=== PATIENT | female | born 1995 | race Caucasian/White ===

== ENCOUNTER 2019-05-21 18:10 | Emergency (ER) | payer OTHER ==
[2019-05-21 18:32] VITALS: BMI 30.9
--- NOTE | 2019-05-21 19:26 | PDOC ---
History of Present Illness - General Chief Complaint: Syncope/Near Syncope Stated Complaint: Syncope/Near Syncope Time Seen by Provider: 05/21/19 19:25 History Source: Patient Exam Limitations: No Limitations - History of Present Illness Initial Comments: Ruba Liu is a 23 yo obese female who denies having any pmh who presents to the [facility] after she experienced a syncopal episode earlier today at the nail salon. She was sitting down, doing someone else's nails, when all of a sudden she felt dizzy, lightheaded, nauseous, and weak then passed out for around 30 seconds on a chair and did not experience any trauma. This episode was witnessed and confirmed by multiple other people in the nail salon. She woke up 30 seconds later, was not confused, and returned to baseline immediately without any post-ictal phase. She did not lose control of her bowel or bladder and did not experience any tongue biting. Bystanders stated she did not appear to have a seizure. Here in the ER the patient denies any symptoms other than mild nausea. She endorses mild nausea but no emesis. She also says it is possible she is . Denies any chest pain, SOB, difficulty breathing before the syncopal episode. Denies headache, blurry vision, numbness, tingling, chills. PCP: Bj Mcgraw PSH: None reported Allergies: NKA, NKDA Social Hx: Denies using any illicit drugs. Denies alcohol, cigarettes, or other substance abuse Past History - Past Medical History Allergies/Adverse Reactions: Allergies Allergy/AdvReac Type Severity Reaction Status Date / Time No Known Allergies Allergy Verified 05/21/19 18:32 Home Medications: Ambulatory Orders Vit 14/Iron Fum/Folic [Completenate Tablet Chew] 1 each PO 1XPACU 7 Days #1 tab.chew 05/21/19 COPD: No - Immunization History Immunization Up to Date: Yes - Psycho Social/Smoking Cessation Hx Smoking History: Never smoked Have you smoked in the past 12 months: No Information on smoking cessation initiated: No Hx Alcohol Use: No Drug/Substance Use Hx: No Substance Use Type: None Review of Systems - Review of Systems Able to Perform ROS?: Yes Comments:: CONSTITUTIONAL: Absent: fever, no chills, no fatigue EYES: Absent: visual changes ENT: Absent: ear pain, no sore throat CARDIOVASCULAR: Present: Syncope Absent: chest pain, no palpitations RESPIRATORY: Absent: cough, no SOB GI: Present: Nausea Absent: abdominal pain, no vomiting, no constipation, no diarrhea GENITOURINARY: Absent: dysuria, no frequency, no hematuria MUSKULOSKELETAL: Absent: back pain, no arthralgia, no myalgia SKIN: Absent: rash NEURO: Absent: headache *Physical Exam - Vital Signs Last Vital Signs Temp Pulse Resp BP Pulse Ox 98.3 F 100 H 18 129/84 98 05/21/19 18:10 05/21/19 18:58 05/21/19 18:58 05/21/19 18:58 05/21/19 18:58 - Physical Exam GENERAL: Well-appearing, well-nourished. No apparent distress. HEENT: Normocephalic, atraumatic. PERRL, EOM intact. CARDIOVASCULAR: Tachycardic rarte. Normal S1, S2. Regular rhythm. PULMONARY: No evidence of respiratory distress. Lungs clear to auscultation bilaterally. No wheezing, rales or rhonchi. ABDOMEN: Soft, non-distended, non-tender. EXTREMITIES: Normal ROM in all four extremities. No gross deformities. SKIN: Warm, dry. No rash NEUROLOGICAL: No focal neurological deficits. Heart Score/ECG Review - ECG Intrepretation Rhythm: Regular Rhythm - Dalton Dalton: Normal - P and NV Atrial Enlargement: Left Prominent R with upright T in V1 (true posterior NJ): No Delta Wave(s) Present: No WPW: No - QRS Poor R Wave Progression: No Q Wave Present: No - ECG Impressions Normal ECG: No Non-specific ST Elevation: No Ischemic Changes: No Torsades ebtsy Pointes: No WPW: No Comment:: NS rate 100, QTc 448, no evidence of WPW, brugada or wellens. No evidence of ARVD. ED Treatment Course - LABORATORY CBC & Chemistry Diagram: 05/21/19 20:00 05/21/19 20:00 Medical Decision Making - Medical Decision Making Ruba Liu is a 23 yo obese female who denies having any pmh who presents to the [facility] after she experienced a syncopal episode earlier today at the nail salon. She was sitting down, doing someone else's nails, when all of a sudden she felt dizzy, lightheaded, nauseous, and weak then passed out for around 30 seconds on a chair and did not experience any trauma. This episode was witnessed and confirmed by multiple other people in the nail salon. She woke up 30 seconds later, was not confused, and returned to baseline immediately without any post-ictal phase. She did not lose control of her bowel or bladder and did not experience any tongue biting. Bystanders stated she did not appear to have a seizure. Here in the ER the patient denies any symptoms other than mild nausea. She endorses mild nausea but no emesis. She also says it is possible she is . Vital Signs Temp Pulse Resp BP Pulse Ox 98 F 93 H 18 128/76 98 05/21/19 20:26 05/21/19 20:26 05/21/19 20:26 05/21/19 20:26 05/21/19 20:26 - Tachycardia DDx IBNLT: Arryhtmia, dehydration, vaso-vagal syncope, - IUP vs ec topic, anemia, electrolyte/metabolic disturbance, ACS, less likely seizure Plan:EKG, labs, urine, IV hydration, supportive care, re-assess. EKG: Documented in EKG section. No concern for arrythmia labs: Unremarkable Urine: HCG positive - Will obtain quantitative Beta - T&S - TVUS to see if in uterus vs ectopic Re-assessment: TVUS shows thickened endometrial stripe but no IUP rH positive Disposition: Home with OB fu, pre- vitamins, strict return precautions. Discharge - Discharge Information Problems reviewed: Yes Clinical Impression/Diagnosis: Qualifiers: Weeks of gestation: unspecified Qualified Code(s): Z34.90 - Encounter for supervision of normal , unspecified, unspecified trimester Condition: Improved Disposition: HOME - Admission No - Additional Discharge Information Prescriptions: Vit 14/Iron Fum/Folic [Completenate Tablet Chew] 1 each PO 1XPACU 7 Days #1 tab.chew - Follow up/Referral Referrals: Bj Mcgraw MD [Primary Care Provider] - Kalyani Barajas MD [Staff Physician] - Blossom Currie MD [Staff Physician] - Don Neely MD [Staff Physician] - - Patient Discharge Instructions Patient Printed Discharge Instructions: Eating for Appropriate Weight Gain During , Common Discomforts and Bodily Changes During , Exercise and : A Healthy Combination, A Survival Guide for Men, Medications and , Is It Safe to Eat Fish During ?, Reducing Foodborne Risks During , Working During : Staying Healthy and Managing Stress, Managing Symptoms of , Ultrasound Exams During Additional Instructions: You came into the ER after a syncopal episode. YOU MUST SCHEDULE A FOLLOW UP APPOINTMENT WITH AN ENVIRONMENTAL MANAGEMENT SPECIALIST DOCTOR THIS WEEK. WE HAVE GIVEN YOU MULTIPLE REFERALLS TO CALL AND SCHEDULE AN APPOINTMENT WITH THIS WEEK. YOU MUST TAKE VITAMINS. NO DRINKING, SMOKING, OR USING ANY OTHER DRUGS DURING . Come back to the ER immediately with any worsening pain, vaginal bleeding or other new or worsening concerns. thank you for coming to the [facility] ER. We hope you feel better soon! Print Language: HONDURAN - Post Discharge Activity
--- NOTE | 2019-05-21 19:30 | PDOC ---
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 She has no fever, no chills and no cough and she has no other complaints. Pt appears well. - Physicial Exam PE: 05/23/19 01:10 Agree with resident exam - Medical Decision Making 05/21/19 21:18 WBC is 14; she has normal HB/HCT 05/21/19 21:18 HR is now 103. Pt walked to the ER 05/21/19 21:59 Labs otherwise normal UA normal; pt has +preg test. LMP was Feb Pt will get sono to r/o pathology and to ensure normal fetus Pt has no abd pain Pt did have a syncope however Pt is ambulating (I walked her to the bathroom) and eating chips and feeling better. 05/21/19 22:54 HCG is 76; sono pending. 05/23/19 01:09 Re-assessment: TVUS shows thickened endometrial stripe but no IUP rH positive Disposition: Home with OB fu, pre- vitamins, strict return precautions.
[2019-05-21] MEDS ORDERED: ASPIRIN 81 MG CHEWABLE TABLETS PO ONE (19:39)
[2019-05-21] MEDS ORDERED: ASPIRIN 81 MG CHEWABLE TABLETS ONE (19:57)
[2019-05-21] MEDS ORDERED: SODIUM CHLORIDE 0.9% 500 ML INFUS.BAG IV ONE (19:57)
[2019-05-21 20:26] VITALS: BP 128/76; PULSE 93; TEMP 98
[2019-05-21] MEDS ORDERED: ONDANSETRON 4 MG/2 ML VIAL IVPUSH ONE (20:40)
[2019-05-21 20:43] LABS: BASO % 0.3 % (0-2.0); HEMATOCRIT 39.7 % (32.4-45.2); HEMOGLOBIN 12.8 GM/dL (10.7-15.3); LYMPH % 18.6 % (8-40); MCH 26.1 pg (25.7-33.7); MCHC 32.3 g/dl (32.0-36.0); MEAN CELL VOLUME 80.7 fl (80-96); MONO % 4.6 % (3.8-10.2); NEUT % 74.5 % (42.8-82.8); PLATELET COUNT 249 K/MM3 (134-434); RBC 4.92 M/mm3 (3.60-5.2); RDW 15.1 % (11.6-15.6)
[2019-05-21] MEDS ORDERED: ONDANSETRON 4 MG/2 ML VIAL ONE (20:50)
[2019-05-21 20:56] LABS: INR 1.07 (0.83-1.09); PROTHROMBIN TIME (PATIENT) 12.6 SEC (9.7-13.0)
[2019-05-21 21:29] LABS: PH,URINE 8.5 (5.0-8.0); URINE APPEARANCE CLEAR; URINE BILIRUBIN NEGATIVE (NEGATIVE); URINE COLOR YELLOW; URINE GLUCOSE (UA) NEGATIVE (NEGATIVE); URINE KETONE NEGATIVE (NEGATIVE); URINE LEUK ESTERASE NEGATIVE (NEGATIVE); URINE NITRITE NEGATIVE (NEGATIVE); URINE PROTEIN NEGATIVE (NEGATIVE); URINE UROBILINOGEN 0.2 mg/dL (0.2-1.0)
[2019-05-21 21:30] LABS: ALBUMIN 3.5 g/dl (3.4-5.0); ALK PHOS 100 U/L (45-117); ANION GAP 7 MMOL/L (8-16); BILIRUBIN,TOTAL 0.2 mg/dL (0.2-1); BLOOD UREA NITROGEN 11.6 mg/dL (7-18); CALCIUM 8.8 mg/dL (8.5-10.1); CHLORIDE 104 mmol/L (98-107); CO2 27 mmol/L (21-32); CREATININE 0.6 mg/dL (0.55-1.3); GLUCOSE,RANDOM 76 mg/dL (74-106); MAGNESIUM 1.9 mg/dL (1.8-2.4); SGOT/AST 23 U/L (15-37); SGPT/ALT 33 U/L (13-61); SODIUM 138 mmol/L (136-145); TOT PROT 7.9 g/dl (6.4-8.2)
[2019-05-21 21:31] LABS: HCG,QUALITATIVE URINE Positive
--- NOTE | 2019-05-22 10:29 | EKG ---
Test Reason : Blood Pressure : / mmHG Vent. Rate : 100 BPM Atrial Rate : 100 BPM P-R Int : 148 ms QRS Dur : 072 ms QT Int : 348 ms P-R-T Axes : 047 085 026 degrees QTc Int : 448 ms NORMAL SINUS RHYTHM POSSIBLE LEFT ATRIAL ENLARGEMENT SEPTAL INFARCT , AGE UNDETERMINED ABNORMAL ECG NO PREVIOUS ECGS AVAILABLE Confirmed by Leighton York MD ([id number]) on 05/22/2019 10:28:45 AM Referred By: Confirmed By:Leighton York MD
== END 2019-05-21 23:50 | disposition home or self-care (01) ==
LOC: JER 18:10
PROC: 3E033GC Introduction of Other Therapeutic Substance into Peripheral Vein, Percutaneous Approach (ICD-10-PCS; principal; 2019-05-21)
DX: Z34.90 Encounter for supervision of normal pregnancy, unspecified, unspecified trimester (principal)
CPT/HCPCS: 36415; 76817-TC; 80053; 81003; 83735; 84484; 84702; 84703; 85025; 85610; 85730; 86850; 86900; 86901; 93005; 93010; 96374; 99285-25

== ENCOUNTER 2021-06-30 12:53 | Emergency (ER) | payer OTHER ==
[2021-06-30 13:03] VITALS: BP 137/91; PULSE 91; TEMP 97.4; BMI 30.9
[2021-06-30] MEDS ORDERED: LIDOCAINE 5% TOPICAL PATCH TP ONE (13:29)
[2021-06-30] MEDS ORDERED: IBUPROFEN 600 MG TABLET (FP) PO ONE ×2 (13:29→13:41)
[2021-06-30] MEDS ORDERED: ACETAMINOPHEN 500 MG TABLET (FP) PO ONE (13:29)
[2021-06-30] MEDS ORDERED: ACETAMINOPHEN 500 MG TABLET (FP) ONE (13:41)
[2021-06-30] MEDS ORDERED: LIDOCAINE 5% TOPICAL PATCH ONE (13:52)
[2021-06-30] MEDS ORDERED: LIDOCAINE PATCH REMOVAL MC SCH (22:00)
== END 2021-06-30 15:33 | disposition home or self-care (01) ==
LOC: JERFT 12:53 → JER 12:53 → JERFT 15:33
DX: M25.511 Pain in right shoulder (principal)
CPT/HCPCS: 71045-TC-FY; 71101-TC-RT-FY; 73030-TC-RT-FY; 99285-25